=== PATIENT | male | born 1955 | race Caucasian/White ===

== ENCOUNTER 2020-10-13 18:57 | Emergency (ER) | payer MEDICARE, OTHER, SELFPAY ==
[2020-10-13] MEDS ORDERED: Silver Sulfadiazine 50 GM TUBE ONE (19:22)
== END 2020-10-13 19:35 | disposition home or self-care (01) ==
LOC: NAV ERS 18:57
DX: T24.201A Burn of second degree of unspecified site of right lower limb, except ankle and foot, initial encounter (principal); X11.8XXA Contact with other hot tap-water, initial encounter
CPT/HCPCS: 16020

== ENCOUNTER 2025-03-25 19:27 | Emergency (ER) | payer MEDICARE ==
[2025-03-25] MEDS ORDERED: valACYclovir 500 MG TAB ONE (20:11)
== END 2025-03-25 21:15 | disposition home or self-care (01) ==
LOC: NAV ERS 19:27
DX: B02.29 Other postherpetic nervous system involvement (principal)
CPT/HCPCS: 99282